=== PATIENT | male | born 1990 | race Caucasian/White ===

== ENCOUNTER 2016-09-24 12:42 | Emergency (ER) | payer BC ==
[2016-09-24] MEDS ORDERED: Diphtheria,Pertussis(Acell),Tetanus Vaccine 0.5 ML Syringe IM ONE (13:05)
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
[2016-09-24] MEDS ORDERED: Ketorolac 60 MG/2 ML SDV IM ONE (13:40)
--- NOTE | 2016-09-24 14:29 | PCM.SN ---
- Free Text/Narrative Note: Case was discussed by me with Dr. Sue Ram at 1427. She agrees with a long arm post mold and sling and she will see the patient in her clinic on Sunday. He will need to call for an appointment time.
[2016-09-24 15:25] VITALS: BP 130/93
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
== END 2016-09-24 15:13 | disposition home or self-care (01) ==
LOC: MW.ED 12:42
DX: S52.125A Nondisplaced fracture of head of left radius, initial encounter for closed fracture (principal); F17.210 Nicotine dependence, cigarettes, uncomplicated; Z79.899 Other long term (current) drug therapy; Z90.49 Acquired absence of other specified parts of digestive tract; V89.2XXA Person injured in unspecified motor-vehicle accident, traffic, initial encounter; Y93.55 Activity, bike riding
CPT/HCPCS: 73060; 73080; 73090; 73100; 73140; 90471; 90715; 96372; 99283; A4566; J1885

== ENCOUNTER 2020-05-07 12:22 | Emergency (ER) | payer BC | END 2020-05-07 13:50 | disposition left against medical advice (07) | LOC: MW.ED 12:22 | DX: Z53.21 Procedure and treatment not carried out due to patient leaving prior to being seen by health care provider (principal) ==